=== PATIENT | female | born 1995 | race Two or more races ===

== ENCOUNTER 2019-09-14 09:33 | Emergency (ER) | payer OTHER ==
[~2019-09-14] VITALS: Ht 160 cm; Wt 53.1 kg
== END 2019-09-14 10:58 | disposition home or self-care (01) ==
LOC: ER 09:33
DX: H01.001 Unspecified blepharitis right upper eyelid (principal)

== ENCOUNTER 2019-09-16 10:59 | Outpatient (CLI) | payer OTHER | END 2019-09-16 18:16 | disposition home or self-care (01) | LOC: LAB 10:59 | DX: R05 Cough (principal); J11.1 Influenza due to unidentified influenza virus with other respiratory manifestations; J06.9 Acute upper respiratory infection, unspecified ==